=== PATIENT | female | born 1975 | race Caucasian/White ===

== ENCOUNTER 2024-02-27 19:44 | Emergency (ER) | payer OTHER, SELFPAY ==
[2024-02-27 19:52] VITALS: BP 102/72
[2024-02-27 20:19] VITALS: BP 85/52
[2024-02-27 20:27] VITALS: BP 94/60
[2024-02-27 20:31] LABS: % Basophils 0.5 % (0-2); % Eosinophils 1.2 % (0-6); % Immature Granulocytes 0.2 % (0-0.5); % Lymphocytes 8.1 % (20.5-51.1); % Monocytes 5.2 % (1.7-9.3); % Neutrophils 84.8 % (42.2-75.2); Absolute Eosinophils 0.1 10^3/uL (0-0.7); Absolute Lymphocytes 0.7 10^3/uL (1.2-3.4); Absolute Monocytes 0.4 10^3/uL (0.1-0.6); Absolute Neutrophils 7.2 10^3/uL (1.4-6.5); Hematocrit 37.8 % (37.0-47.0); Hemoglobin 12.8 g/dL (12.0-16.0); Mean Corp Hgb Conc. 33.9 g/dL (33.0-37.0); Mean Corpuscular Hgb 28.1 pg (27.0-31.0); Mean Corpuscular Volume 82.9 fL (81.0-99.0); Mean Platelet Volume 9.6 fL (7.4-10.4); Nucleated Red Blood Cells % 0 %; Platelet Count 197 10^3/uL (130-400); Red Blood Cell Count 4.56 10^6/uL (4.20-5.40); Red Cell Dist. Width 13.7 % (11.5-14.5); White Blood Cell Count 8.5 10^3/uL (4.8-10.8)
[2024-02-27 20:36] LABS: COVID-19 Antigen Positive (Negative)
[2024-02-27 20:38] LABS: ALT (SGPT) 17 U/L (0-35); AST (SGOT) 29 U/L (14-36); Albumin 4.3 g/dl (3.5-5.0); Alkaline Phosphatase 68 U/L (38-126); Blood Urea Nitrogen 9 mg/dl (7-17); Calcium 9.4 mg/dl (8.4-10.2); Carbon Dioxide 25 mmol/L (22-30); Chloride 99 mmol/L (98-107); Glucose 128 mg/dl (70-99); Potassium 4.2 mmol/L (3.5-5.1); Sodium 134 mmol/L (135-145); Total Bilirubin 0.5 mg/dl (0.2-1.3); Total Protein 7.1 g/dl (6.3-8.2); eGFR > 60.00
[2024-02-27 20:49] LABS: Troponin I < 0.012 ng/ml
[2024-02-27 23:53] VITALS: BP 105/63
[2024-02-28] VITALS: BP 94/57
--- NOTE | 2024-02-28 00:09 | ED.GENMED ---
History of Present Illness
General
Chief Complaint: Breathing Problem
Source: patient
Exam Limitations: none
Time Seen by Provider: 02/28/24 00:03
History of Present Illness
History of Present Illness:
See MDM
Past History
Past History
ED Past Medical History: Other (Recent pneumonia)
ED Past Surgical History: None
Social History
Tobacco: Non-smoker
Alcohol: None
Personal: Single
Living: with family
Employment: Employed
Family History
Family History: Other (Noncontributory)
Phy Exam
Physical Exam
Physical Exam:
See MDM
Scores
Heart Failure Risk
Heart Failure Risk Score: Not Applicable
Course
Orders/Labs/Results
Orders:
Orders
02/27/24 19:54
Electrocardiogram (*1) Urgent
Reason for Study: Chest Pain
02/27/24 19:55
EKG- Treatment ONCE
02/27/24 20:12
COVID-19 Antigen Urgent
Source: Nasal Swab
02/27/24 20:14
Complete Blood Count/With Diff Urgent
Comprehensive Metabolic Panel Urgent
HCG, Serum Qualitative Screen Urgent
Comment: ADD ON
Troponin I Urgent
02/28/24 00:08
CT Chest PE Study Urgent
Comment:
Reason For Exam: covid, chest pain, SOB
Ketorolac [Toradol] 30 mg IV NOW STA
02/28/24 00:11
Add On- LAB Urgent
Tests Added?: serum HCG qualitative
Abnormal Lab Results
02/27/24 02/27/24
20:12 20:14
Absolute Neuts (auto) 7.2 H 10^3/uL
(1.4-6.5)
Absolute Lymphs (auto) 0.7 L 10^3/uL
(1.2-3.4)
Neutrophils % 84.8 H %
(42.2-75.2)
Lymphocytes % 8.1 L %
(20.5-51.1)
Sodium 134 L mmol/L
(135-145)
Glucose 128 H mg/dl
(70-99)
SARS-CoV-2 Antigen Positive A
(Negative)
02/27/24 20:14
02/27/24 20:14
Vital Signs
Initial and Last Documented VS:
Initial Vital Signs
Temp Pulse Resp BP Pulse Ox
99.5 F 115 16 102/72 95
02/27/24 19:52 02/27/24 19:52 02/27/24 19:52 02/27/24 19:52 02/27/24 19:52
Last Documented Vital Signs
Temp Pulse Resp BP Pulse Ox
99.5 F 97 16 92/52 94
02/27/24 19:52 02/27/24 20:27 02/27/24 20:19 02/28/24 01:01 02/28/24 01:01
MDM/Problems Addressed
Differential Diagnosis Includes:
HPI and MDM Narrative:
48-year-old female presenting for evaluation of shortness of breath, cough, back pain and chest pain. She was recently diagnosed with COVID and today is her first day taking Paxlovid. Patient was concerned because symptoms are worsening. Blood
work was obtained prior to my evaluation. There is no significant abnormality. She was initially tachycardic that improved with rest. Lungs are clear but she does have a bronchospastic cough. No leg edema. Will obtain CT PE given her history
but otherwise discussed COVID and bronchospasm
Physical exam
General: Mildly uncomfortable
HEENT: protecting airway
Neck: appears supple
CV: No evidence of cyanosis. Regular rate and rhythm
Resp: No accessory muscle use. Bronchospastic cough but otherwise clear
Abd: Non-distended
Extremities: No deformities or edema
Neuro: alert
Psych: Normal affect
Skin: Intact
Problems Addressed including Acute and Chronic Conditions affecting care:
1. Chest and back pain with shortness of breath
Acuity: acute
Prognosis: stable
Details: Likely pleuritic pain due to her COVID. Will obtain CT PE given her history
Updates
CT PE negative for pneumonia or PE.
Differential Diagnosis (but not limited to): Bronchitis, pneumonia, PE
Testing considered: D-dimer
Drug therapy (if applicable): OTC meds, please see d/c instruction regarding Rx drugs
Amount and/or Complexity of Data Reviewed
Clinical info obtained from: Patient
External data reviewed: N/A
Labs I independently reviewed (but not limited to): White blood cell count normal, troponin normal
Radiology: The CT scan was personally and independently reviewed. In addition, official CT report reviewed.
Pulse Ox: not hypoxic
EKG independently reviewed: Sinus rhythm, normal axis, no STEMI
Continuity Clerk: N/A
Critical Care: N/A
Risk of Complication:
Social Determinants of health: Good social support
Discussed with other providers: N/A
Escalation of Care includes Admit/Obs: After being observed in the Emergency Department, pt stable for discharge.
Occasional wrong word or 'sound a like' substitutions may have occurred due to the inherent limitations of voice recognition software. Read the chart carefully and recognize, using context, where substitutions have occurred.
*Critical Care Note
Total Time (30-74mins, 75-104mins- exclusive of procedures): Not Applicable
ED Attending Note
-
Portions of this chart may have been created with voice recognition software.� Occasional wrong word or��sound alike� substitutions may have occurred due to the inherent limitations of voice recognition software.
Discharge Plan
Departure
Patient Disposition: Home (Routine Discharge)
Date of Disposition: 02/28/24
Time of Disposition: 02:22
Patient with high blood pressure during this ER visit?: No
Discharge Problem:
COVID
Instructions: COVID-19 - ED discharge instructions
Prescriptions:
New
albuterol sulfate 90 mcg/actuation HFA aerosol inhaler
2 puff inhalation Q6H PRN (Reason: shortness of breath or wheezing) Qty: 8.5 0RF
No Action
ibuprofen [Motrin] 600 MG tablet
600 mg PO .Q6HPRN Qty: 20 0RF
levofloxacin [Levaquin] 750 MG tablet
750 mg PO DAILY Qty: 9 0RF
albuterol sulfate [Proventil HFA] 90 MCG/PUFF HFA aerosol inhaler
2 puff inhalation Q4H PRN (Reason: sob) Qty: 1 0RF
hydrocodone-homatropine [Hycodan (with homatropine)] 5 ML syrup
10 ml PO Q6HPRN PRN (Reason: cough) Qty: 120 0RF
diazepam 5 MG tablet
5 mg PO TIDPRN PRN (Reason: MUSCLE SPASM/TIGHTNESS) Qty: 20 0RF
hydrocodone-acetaminophen 1 TABLET tablet
1 tab PO Q4HPRN PRN (Reason: pain) Qty: 10 0RF
Referrals:
Cristobal Wagner MD [Family Provider] -
Activity Restrictions/Additional Instructions:
Please return for any worsening symptoms.
You may return at any time if you have further concerns.
Please follow up with your doctor at the first available appointment, preferably this week.
Thank you for choosing [facility].
Interventions
Interventions:
ED- Cardiac Assessment Last Done: 02/28/24 00:54
ED- Pulmonary Assessment Last Done: 02/28/24 00:54
Discharge Date and Time
Print Language: FINNISH
[2024-02-28] MEDS: TORADOL 30 MG IV (00:14)
[2024-02-28 01:01] VITALS: BP 92/52
[2024-02-28 01:07] LABS: HCG, Serum Qualitative Screen Negative
[2024-02-28 02:26] VITALS: BP 92/58
== END 2024-02-28 02:33 | disposition home or self-care (01) ==
LOC: EMR 19:44
PROVIDERS: Emergency Medicine; EMERGENCY PHYSICIAN Student in an Organized Health Care Education/Training Program; FAMILY PHYSICIAN Family Medicine
DX: U07.1 COVID-19 (principal)
CPT/HCPCS: 99284; 71275; 80053; 84484; 84703; 85025; 87811; 93005; Q9967